=== PATIENT | male | born 1950 | race Two or more races ===

== ENCOUNTER 2024-09-05 03:12 | Observation (INO) | payer MEDICARE ==
[2024-09-05 03:32] LABS: BASOPHILS ABSOLUTE AUTO 0.11 K/uL (0.00-0.20); BASOPHILS PERCENT AUTO 0.7 % (0.0-1.0); HEMATOCRIT 40.3 % (42.0-52.0); IMMATURE GRAN ABSOLUTE AUTO 0.07 K/uL (0.00-0.05); IMMATURE GRAN PERCENT AUTO 0.4 % (0.0-0.4); LYMPHOCYTES ABSOLUTE AUTO 1.55 K/uL (1.00-4.80); LYMPHOCYTES PERCENT AUTO 9.9 % (24.0-44.0); MEAN CORPUSCULAR HEMOGLOBIN 30.8 pg (28.0-32.0); MEAN CORPUSCULAR HGB CONC 34.7 g/dL (32.0-36.0); MEAN CORPUSCULAR VOLUME 88.8 fL (83.0-99.0); MONOCYTES ABSOLUTE AUTO 0.49 K/uL (0.00-0.80); MONOCYTES PERCENT AUTO 3.1 % (0.0-8.0); NEUTROPHILS ABSOLUTE AUTO 13.48 K/uL (1.80-7.70); NEUTROPHILS PERCENT AUTO 85.9 % (41.0-71.0); PLATELET COUNT,PLT 250 K/uL (150-400); RED BLOOD CELL COUNT 4.54 M/uL (4.52-5.90)
[2024-09-05] MEDS: Morphine 4 MG/ML Syringe IVPUSH ONE (03:34)
[2024-09-05] MEDS: Sodium Chloride 0.9% 1,000 ML IV ONE (03:34)
[2024-09-05] MEDS: Ondansetron 4 MG/2 ML SDV IVPUSH ONE (03:34)
[2024-09-05 03:55] LABS: ALBUMIN 4.1 g/dL (3.4-5.0); BILIRUBIN TOTAL 0.4 mg/dL (0.2-1.0); CALCIUM 8.5 mg/dL (8.5-10.1); CARBON DIOXIDE,CO2 24.1 mmol/L (21.0-32.0); CREATININE 1.1 mg/dL (0.8-1.3); EST CRCL DRUG DOSING (CG) 40.4 mL/min; POTASSIUM,K 4.3 mmol/L (3.5-5.1); PROTEIN TOTAL,TP 8.1 g/dL (6.4-8.2)
[2024-09-05] MEDS: Iopamidol 755 MG/ML 500 ML Multipack Bottle IVPUSH ONE (04:37)
[2024-09-05] MEDS ORDERED: Glucagon,Human Recombinant 1 MG Vial IM PRN (08:46)
[2024-09-05] MEDS ORDERED: Morphine 2 MG/ML SYRINGE IVPUSH PRN (08:46)
[2024-09-05] MEDS ORDERED: Ketorolac 30 MG/ML SDV IVPUSH PRN (08:46)
[2024-09-05] MEDS ORDERED: 50% Dextrose in Water 50 ML Syringe IVPUSH PRN (08:46)
[2024-09-05] MEDS ORDERED: Ondansetron 4 MG/2 ML SDV IVPUSH PRN (08:46)
[2024-09-05] MEDS ORDERED: Polyethylene Glycol 3350 Powder 17 GM Packet PO PRN (08:46)
[2024-09-05 11:28] LABS: HEMOGLOBIN A1C 6.8 %
[2024-09-05] MEDS: Sodium Chloride 0.9% 1,000 ML IV SCH ×2 (12:08→16:36)
[2024-09-05] MEDS: Piperacillin/Tazobactam 4.5 GM in Sodium Chloride 0.9% 100 ML IV ONE (12:18)
[2024-09-05] MEDS: Pantoprazole 40 MG in Sodium Chloride 0.9% 10 ML IVPUSH SCH (12:22)
[2024-09-05] MEDS: Insulin Aspart 100 Units/ML 3 ML Pen SUBCUT SCH (12:32)
[2024-09-05] MEDS: Acetaminophen 325 MG Tab PO PRN (17:28)
[2024-09-05] MEDS: Piperacillin/Tazobactam 4.5 GM in Sodium Chloride 0.9% 100 ML IV SCH (19:51)
[2024-09-05] MEDS: atorvaSTATin 10 MG Tab PO SCH (20:03)
[2024-09-06 05:50] LABS: BASOPHILS ABSOLUTE AUTO 0.06 K/uL (0.00-0.20); BASOPHILS PERCENT AUTO 0.3 % (0.0-1.0); EOSINOPHILS ABSOLUTE AUTO 0.01 K/uL (0.00-0.45); HEMATOCRIT 36.1 % (42.0-52.0); HEMOGLOBIN 12.5 g/dL (14.0-18.0); IMMATURE GRAN PERCENT AUTO 1.4 % (0.0-0.4); LYMPHOCYTES ABSOLUTE AUTO 1.19 K/uL (1.00-4.80); LYMPHOCYTES PERCENT AUTO 5.4 % (24.0-44.0); MEAN CORPUSCULAR HEMOGLOBIN 30.9 pg (28.0-32.0); MEAN CORPUSCULAR HGB CONC 34.6 g/dL (32.0-36.0); MEAN CORPUSCULAR VOLUME 89.1 fL (83.0-99.0); MEAN PLATELET VOLUME 9.8 fL (9.4-12.4); MONOCYTES PERCENT AUTO 3.6 % (0.0-8.0); NEUTROPHILS ABSOLUTE AUTO 19.59 K/uL (1.80-7.70); NEUTROPHILS PERCENT AUTO 89.3 % (41.0-71.0); PLATELET COUNT,PLT 209 K/uL (150-400); RED BLOOD CELL COUNT 4.05 M/uL (4.52-5.90); WHITE BLOOD CELL COUNT,WBC 21.95 K/uL (3.9-11.3)
[2024-09-06 06:13] LABS: A/G RATIO 0.8 (0.9-1.6); BILIRUBIN TOTAL 1.5 mg/dL (0.2-1.0); CREATININE 1.2 mg/dL (0.8-1.3); EST CRCL DRUG DOSING (CG) 21.67 mL/min; MAGNESIUM 1.5 mg/dL (1.8-2.4); POTASSIUM,K 3.7 mmol/L (3.5-5.1); PROTEIN TOTAL,TP 6.6 g/dL (6.4-8.2)
[2024-09-06] MEDS ORDERED: Ketorolac 30 MG/ML SDV IVPUSH PRN (07:12)
[2024-09-06] MEDS: amLODIPine 5 MG Tab PO SCH (08:36)
[2024-09-06] MEDS: Losartan 50 MG Tab PO SCH (08:36)
== END 2024-09-06 14:20 ==
LOC: MW.ED 03:12 → MW.MS 07:03
PROVIDERS: ADMIT Family Medicine; ATTEND Family Medicine
DX: K80.62 Calculus of gallbladder and bile duct with acute cholecystitis without obstruction (principal); I15.2 Hypertension secondary to endocrine disorders; E11.9 Type 2 diabetes mellitus without complications; E78.5 Hyperlipidemia, unspecified; Z79.84 Long term (current) use of oral hypoglycemic drugs; Z79.899 Other long term (current) drug therapy
CPT/HCPCS: 36415; 71046; 74177; 76705; 80053; 80061; 82947; 83036; 83605; 83690; 83735; 85025; 96361; 96365; 96366; 96375; 96376; 99285; A9270; G0378; J1815; J2270; J2405; J2470; J2543; J3490; J7030; Q9967; 96374; 99222; 99239; 99284